=== PATIENT | male | born 1945 | race Caucasian/White ===

== ENCOUNTER 2016-07-19 02:00 | Emergency (ER) | payer MEDICARE, OTHER ==
[2016-07-19] MEDS ORDERED: Sodium Chloride 0.9% 10 ML Syringe FLUSH PRN (02:23)
[2016-07-19] MEDS ORDERED: Ondansetron 4 MG/2 ML SDV IVPUSH ONE (02:23)
[2016-07-19] MEDS ORDERED: HYDROmorphone 1 MG/ML Syringe IVPUSH ONE (02:24)
--- NOTE | 2016-07-19 02:28 | EDM.PDOC ---
ED HPI GENERAL MEDICAL PROBLEM - General Chief Complaint: Abdominal Pain Stated Complaint: RIGHT SIDE PAIN Time Seen by Provider: 07/19/16 02:20 Source of Information: Reports: Patient History Limitations: Reports: No Limitations - History of Present Illness INITIAL COMMENTS - FREE TEXT/NARRATIVE: The patient presents with RLQ abdominal pain. This started early this morning at 0030. He has nausea and vomiting. He has no diarrhea or dysuria. He has no fever or chills. He has no chest pain or shortness of breath. He still has his appendix and gallbladder. Onset: Today Duration: Hour(s): (2) Location: Reports: Abdomen Quality: Reports: Sharp Severity: Moderate Improves with: Reports: None Worsens with: Reports: None Associated Symptoms: Reports: Nausea/Vomiting. Denies: Chest Pain, Fever/Chills , Shortness of Breath Right Lower Abdomen Pain Score (Numeric/FACES): 4 - Related Data Allergies Allergy/AdvReac Type Severity Reaction Status Date / Time metformin Allergy Diarrhea Verified 07/19/16 02:13 Home Meds: Home Meds Aspirin [Ecotrin] 1 tab PO DAILY 07/19/16 [History] Ciprofloxacin HCl [Cipro] 500 mg PO BID #14 tablet 07/19/16 [Rx] Clopidogrel [Plavix] 75 mg PO DAILY 07/19/16 [History] Dutasteride/Tamsulosin HCl [Dutasteride-Tamsulosin 0.5-0.4] 1 cap PO DAILY 07/19 [History] Hydrochlorothiazide 25 mg PO DAILY 07/19/16 [History] Isosorbide Mononitrate [Imdur] 60 mg PO DAILY 07/19/16 [History] Levofloxacin [Levaquin] 500 mg PO DAILY #10 tablet 07/19/16 [Rx] Lisinopril 20 mg PO DAILY 07/19/16 [History] Metoprolol Succinate [Toprol XL] 25 mg PO DAILY 07/19/16 [History] Nitroglycerin [Nitrostat] 0.4 mg SL ASDIRECTED PRN 07/19/16 [History] Pantoprazole Sodium [Protonix] 40 mg PO DAILY 07/19/16 [History] Rosuvastatin [Crestor] 20 mg PO BEDTIME 07/19/16 [History] SitaGLIPtin [Januvia] 1 tab PO DAILY 07/19/16 [History] glipiZIDE [Glucotrol XL] 2.5 mg PO DAILY 07/19/16 [History] Past Medical History Cardiovascular History: Reports: Angina, High Cholesterol, Hypertension, Stents Gastrointestinal History: Reports: Gastritis, GERD Genitourinary History: Reports: BPH, Other (See Below) Other Genitourinary History: enlarged testicles Endocrine/Metabolic History: Reports: Diabetes, Type II - Past Surgical History HEENT Surgical History: Reports: Laser Surgery GI Surgical History: Reports: Colonoscopy Musculoskeletal Surgical History: Reports: Other (See Below) Other Musculoskeletal Surgeries/Procedures:: toe surgery Social & Family History - Tobacco Use Smoking Status *Q: Current Every Day Smoker Years of Tobacco use: 50 Packs/Tins Daily: 1 Used Tobacco, but Quit: No - Caffeine Use Caffeine Use: Reports: Coffee - Recreational Drug Use Recreational Drug Use: No ED ROS GENERAL - Review of Systems Review Of Systems: See Below Constitutional: Reports: No Symptoms HEENT: Reports: No Symptoms Respiratory: Reports: No Symptoms Cardiovascular: Reports: No Symptoms Endocrine: Reports: No Symptoms GI/Abdominal: Reports: Abdominal Pain, Nausea, Vomiting. Denies: Diarrhea : Reports: No Symptoms Musculoskeletal: Reports: No Symptoms Skin: Reports: No Symptoms Neurological: Reports: No Symptoms ED EXAM, GI/ABD - Physical Exam Exam: See Below Exam Limited By: No Limitations General Appearance: Alert, No Apparent Distress Ears: Normal External Exam Nose: Normal Inspection Throat/Mouth: Normal Inspection Head: Atraumatic, Normocephalic Neck: Normal Inspection Respiratory/Chest: No Respiratory Distress, Lungs Clear, Normal Breath Sounds Cardiovascular: Regular Rate, Rhythm, No Edema, No Murmur GI/Abdominal: Soft, No Organomegaly, No Mass, Tenderness (Moderate to the RLQ) Back Exam: Normal Inspection Extremities: Normal Inspection Course - Vital Signs Last Recorded V/S: Last Vital Signs Temp 97.3 F 07/19/16 02:07 Pulse 58 L 07/19/16 02:07 Resp 20 07/19/16 02:07 BP 153/77 H 07/19/16 02:07 Pulse Ox 98 07/19/16 02:07 - Orders/Labs/Meds Orders: Active Orders 24 hr Category Date Time Status Oxygen Therapy [RC] PRN Care 07/19/16 02:24 Active Peripheral IV Care [RC] . DIRECTED Care 07/19/16 02:24 Active Abdomen Pelvis w Cont [CT] Stat Exams 07/19/16 02:23 Taken Sodium Chloride 0.9% [Normal Saline] 1,000 ml Med 07/19/16 02:30 Active IV ASDIRECTED Sodium Chloride 0.9% [Saline Flush] Med 07/19/16 02:23 Active 10 ml FLUSH ASDIRECTED PRN ED Antiemetic Medication Reflex [OM.PC] Stat Oth 07/19/16 02:23 Ordered Peripheral IV Insertion Adult [OM.PC] Stat Oth 07/19/16 02:23 Ordered Medication Orders Sodium Chloride (Normal Saline) 1,000 mls @ 125 mls/hr IV ASDIRECTED ASHLEY Last Admin: 07/19/16 02:30 Dose: 125 mls/hr Sodium Chloride (Saline Flush) 10 ml FLUSH ASDIRECTED PRN PRN Reason: Keep Vein Open Last Admin: 07/19/16 04:20 Dose: 10 ml Labs: Laboratory Tests 07/19/16 07/19/16 07/19/16 Range/Units 02:13 02:13 04:19 WBC 13.44 H (4.23-9.07) K/mm3 RBC 4.96 (4.63-6.08) M/mm3 Hgb 15.1 (13.7-17.5) gm/L Hct 45.2 (40.1-51.0) % MCV 91.1 (79.0-92.2) fl MCH 30.4 (25.7-32.2) pg MCHC 33.4 (32.2-35.5) g/dl RDW Std Deviation 48.8 H (35.1-43.9) fL Plt Count 196 (163-337) K/mm3 MPV 10.4 (9.4-12.3) fl Neut % (Auto) 81.1 H (34.0-67.9) % Lymph % (Auto) 11.6 L (21.8-53.1) % [place] % (Auto) 6.5 (5.3-12.2) % Eos % (Auto) 0.4 L (0.8-7.0) Baso % (Auto) 0.1 (0.1-1.2) % Neut # (Auto) 10.90 H (1.78-5.38) K/mm3 Lymph # (Auto) 1.56 (1.32-3.57) K/mm3 [place] # (Auto) 0.87 H (0.30-0.82) K/mm3 Eos # (Auto) 0.05 (0.04-0.54) K/mm3 Baso # (Auto) 0.02 (0.01-0.08) K/mm3 Sodium 141 (136-145) mEq/L Potassium 4.0 (3.5-5.1) mEq/L Chloride 104 (98-107) mEq/L Carbon Dioxide 28 (21-32) mEq/L Anion Gap 13.0 (5-15) BUN 17 (7-18) mg/dL Creatinine 1.1 (0.7-1.3) mg/dL Est Cr Clr Drug Dosing 57.59 mL/min Estimated GFR (MDRD) > 60 (>60) mL/min BUN/Creatinine Ratio 15.5 (14-18) Glucose 172 H (83-115) mg/dL Calcium 9.4 (8.5-10.1) mg/dL Total Bilirubin 0.5 (0.2-1.0) mg/dL AST 18 (15-37) U/L ALT 25 (16-63) U/L Alkaline Phosphatase 113 (46-116) U/L Total Protein 7.8 (6.4-8.2) g/dl Albumin 3.9 (3.4-5.0) g/dl Globulin 3.9 gm/dL Albumin/Globulin Ratio 1.0 (1-2) Lipase 163 (73-393) U/L Urine Color Yellow (Yellow) Urine Appearance Slt cloudy H (Clear) Urine pH 6.5 (5.0-8.0) Ur Specific [place] 1.015 (1.005-1.030) Urine Protein Negative (Negative) Urine Glucose (UA) Negative (Negative) Urine Ketones Negative (Negative) Urine Occult Blood 1+ H (Negative) Urine Nitrite Positive H (Negative) Urine Bilirubin Negative (Negative) Urine Urobilinogen 0.2 (0.2-1.0) Ur Leukocyte Esterase 3+ H (Negative) Urine RBC 10-20 H (0-5) /hpf Urine WBC 20-30 H (0-5) /hpf Ur Epithelial Cells Not Reportable Ur Squamous Epith Cells 0-5 (0-5) /hpf Urine Bacteria Moderate H (FEW) /hpf Urine Mucus Few (FEW) /hpf Meds: Medications Generic Name Dose Route Start Last Admin Trade Name Freq PRN Reason Stop Dose Admin Sodium Chloride 1,000 mls @ 125 mls/hr 07/19/16 02:30 07/19/16 02:30 Normal Saline IV 125 mls/hr ASDIRECTED ASHLEY Administration Sodium Chloride 10 ml 07/19/16 02:23 07/19/16 04:20 Saline Flush FLUSH 10 ml ASDIRECTED PRN Administration Keep Vein Open Discontinued Medications Generic Name Dose Route Start Last Admin Trade Name Freq PRN Reason Stop Dose Admin Diatrizoate Meglum/Diatrizoate Sod 90 ml 07/19/16 03:42 07/19/16 04:19 Gastrografin 37% PO 07/19/16 03:43 90 ml ONETIME ONE Administration Hydromorphone HCl 1 mg 07/19/16 02:24 07/19/16 02:34 Dilaudid IVPUSH 07/19/16 02:25 1 mg ONETIME ONE Administration Levofloxacin/Dextrose 500 mg/ 100 mls @ 100 mls/hr 07/19/16 05:35 07/19/16 05 :56 Premix IV 07/19/16 06:34 100 mls/hr ONETIME ONE Administration Iopamidol 150 ml 07/19/16 03:42 07/19/16 04:20 Isovue-300 (61%) IVPUSH 07/19/16 03:43 150 ml ONETIME ONE Administration Ondansetron HCl 4 mg 07/19/16 02:23 07/19/16 02:32 Zofran IVPUSH 07/19/16 02:24 4 mg ONETIME ONE Administration - Re-Assessments/Exams Free Text/Narrative Re-Assessment/Exam: 07/19/16 02:27 I ordered an IV NS at 125mL/hr, zofran 4mg IV, dilaudid 1mg IV, labs, UA and a CT of his abdomen and pelvis. 07/19/16 05:48 His WBC was elevated at 13.44. His CMP was negative. His UA shows a UTI. The CT of his abdomen and pelvis shows a large adrenal lesion measuring 4.9 X 3.5 X 3.7 cm. Thickened bladder wall. Small right bladder diverticulum measuring 14 x 11mm. Heterogeneous enlarged prostate with multiple calcifications measuring 5 X 5.1cm causing indentation on bladder base with bladder wall thickening likely secondary to chronic outlet obstruction versus cystitis. Extensive atherosclerosis and mural thrombus of abdominal aorta. Abdominal aorta is measuring about 24 x 24mm. There is dilatation of left common iliac artery with extensive thrombosis in atherosclerosis measuring approximately 23 X 36mm. Extensive atherosclerosis of bilateral common, external and internal carotid arteries. I feel his pain is from the bladder infection. I have ordered levaquin 500mg IV. The other findings he will need to follow up with his doctor. 07/19/16 06:17 The patient says his right testicle is hurting now. He has some edema and pain upon palpation. I have ordered an US of his scrotum. 07/19/16 08:04 The US shows left testicle is slightly hypoechoic as compared to the right testicle. Findings may represent mild diffuse edema. Mild orchitis is possible both venous and arterial blood flow seen within both testicles. Scrotal wall thickening which is nonspecific, and small bilateral hydroceles. I will put him on levaquin 500mg daily for 10 days. Departure - Departure Time of Disposition: 08:30 Disposition: Home, Self-Care 01 Condition: good Clinical Impression: Left adrenal mass, Bladder diverticulum, Enlarged prostate, Aneurysm of left iliac artery, Aortic atherosclerosis, Aortic mural thrombus, Orchitis UTI (urinary tract infection) Qualifiers: Urinary tract infection type: acute cystitis Hematuria presence: without hematuria Qualified Code(s): N30.00 - Acute cystitis without hematuria Hydrocele Qualifiers: Hydrocele type: other Qualified Code(s): N43.2 - Other hydrocele - Discharge Information Prescriptions: Ciprofloxacin HCl [Cipro] 500 mg PO BID #14 tablet Levofloxacin [Levaquin] 500 mg PO DAILY #10 tablet Instructions: Urinary Tract Infection, Adult, [id number] Referrals: Felicitas Johnson MD [Primary Care Provider] - Forms: ED Department Discharge Additional Instructions: Take the levaquin daily for 10 days. Continue with your other medications. Follow up with Dr Johnson within the week. Take a hydrocodone 1 to 2 pills every 6 hours as needed for pain. - My Orders Last 24 Hours: My Active Orders 07/19/16 02:23 Abdomen Pelvis w Cont [CT] Stat Sodium Chloride 0.9% [Saline Flush] 10 ml FLUSH ASDIRECTED PRN ED Antiemetic Medication Reflex [OM.PC] Stat Peripheral IV Insertion Adult [OM.PC] Stat 07/19/16 02:24 Oxygen Therapy [RC] PRN Peripheral IV Care [RC] . DIRECTED 07/19/16 02:30 Sodium Chloride 0.9% [Normal Saline] 1,000 ml IV ASDIRECTED - Assessment/Plan Last 24 Hours: My Active Orders 07/19/16 02:23 Abdomen Pelvis w Cont [CT] Stat Sodium Chloride 0.9% [Saline Flush] 10 ml FLUSH ASDIRECTED PRN ED Antiemetic Medication Reflex [OM.PC] Stat Peripheral IV Insertion Adult [OM.PC] Stat 07/19/16 02:24 Oxygen Therapy [RC] PRN Peripheral IV Care [RC] . DIRECTED 07/19/16 02:30 Sodium Chloride 0.9% [Normal Saline] 1,000 ml IV ASDIRECTED
[2016-07-19] MEDS ORDERED: Sodium Chloride 0.9% 1,000 ML IV SCH (02:30)
[2016-07-19] MEDS ORDERED: Diatrizoate Meglumine/Diatrizoate Sodium 37% 120 ML Bottle PO ONE (03:42)
[2016-07-19] MEDS ORDERED: Iopamidol 612 MG/ML 150 ML Bottle IVPUSH ONE (03:42)
[2016-07-19] MEDS ORDERED: Levofloxacin/Dextrose 5%-Water 500 MG in Premix Bag 1 BAG IV ONE (05:35)
--- NOTE | 2016-07-19 07:59 | US ---
Testicular ultrasound: Multiple real-time images of the testicles were obtained. Left testicle is slightly hypoechoic as compared to the right testicle. No focal abnormality is seen within the testicles. Both venous and arterial blood flow seen within the testicles. Scrotal wall thickening appears to be present. Small bilateral hydroceles are seen. Impression: 1. Left testicle is slightly hypoechoic as compared to the right testicle. Findings may represent mild diffuse edema. Mild orchitis is possible. 2. Both venous and arterial blood flow seen within both testicles. 3. Scrotal wall thickening which is nonspecific. 4. Small bilateral hydroceles. Diagnostic code #3
--- NOTE | 2016-07-19 11:28 | CT ---
CT abdomen and pelvis Technique: Multiple axial sections were obtained from above the dome of the diaphragm inferiorly through the pubic symphysis. Delayed images were also obtained through the abdomen and pelvis. Comparison: No previous abdominal imaging. Findings: Small portion of the visualized lung bases show nothing acute. Liver shows no focal parenchymal abnormality. Spleen appears within normal limits. Left adrenal mass is seen. Mass measures approximately 4.9 cm in greatest dimension. Right adrenal gland is unremarkable. Small cysts are seen within the right kidney with largest measuring around 1.5 cm. Pancreas is within normal limits. Aorta shows diffuse atherosclerotic change. Aneurysm noted within the left common iliac artery measuring 3.1 cm. Small retroperitoneal lymph nodes are seen which are normal. No mesenteric abnormalities are seen. Small bladder diverticulum seen off the posterior right side measuring 1.8 cm. Prostate gland is enlarged and shows calcifications. Bladder wall is slightly prominent likely representing muscular hypertrophy from element of bladder outlet obstruction. Small fat-containing left inguinal hernia is noted. Appendix not seen with certainty. Minimal colonic diverticuli are seen. Impression: 1. Left common iliac artery aneurysm measuring 3.1 cm. 2. Other incidental findings as noted above. No acute abnormality is appreciated on CT study of the abdomen and pelvis. Diagnostic code #3 I agree with preliminary report issued by [facility] ([facility] preliminary report dictated on 07/19/16, 6:03 AM Central Time)
[2016-07-19 11:48] VITALS: BP 139/70
== END 2016-07-19 08:33 | disposition home or self-care (01) ==
LOC: JD.ED 02:00
DX: R10.31 Right lower quadrant pain (principal); E11.9 Type 2 diabetes mellitus without complications; I10 Essential (primary) hypertension; F17.210 Nicotine dependence, cigarettes, uncomplicated; N30.00 Acute cystitis without hematuria; E27.8 Other specified disorders of adrenal gland; N32.3 Diverticulum of bladder; N40.0 Benign prostatic hyperplasia without lower urinary tract symptoms; I72.3 Aneurysm of iliac artery; I70.0 Atherosclerosis of aorta; N45.2 Orchitis; Z98.890 Other specified postprocedural states; Z79.02 Long term (current) use of antithrombotics/antiplatelets; N43.3 Hydrocele, unspecified; Q61.01 Congenital single renal cyst; K40.30 Unilateral inguinal hernia, with obstruction, without gangrene, not specified as recurrent
CPT/HCPCS: 36415; 74177; 76870; 80053; 81001; 83690; 85025; 87086; 87088; 87186; 93975; 96361; 96365; 96375; 99284; J1170; J1956; J2405; J7040; J7050; Q9963; Q9967

== ENCOUNTER 2018-04-11 07:06 | Day surgery (SDC) | payer OTHER ==
[~2018-04-11 07:06] MED LIST: Lactated Ringers 1,000 ML IV SCH; Lidocaine 1%/Sod Bicarbonate in NS 8.4% 1 ML Syringe IDERM PRN; Sodium Chloride 0.9% 10 ML Syringe FLUSH PRN
[2018-04-11] MEDS ORDERED: fentaNYL 100 MCG/2 ML SDV ONE (07:10)
[2018-04-11] MEDS ORDERED: Propofol 200 MG/20 ML SDV ONE (07:10)
[2018-04-11] MEDS ORDERED: Lidocaine 1% 4 ML ONE (07:11)
--- NOTE | 2018-04-11 07:53 | PCM.PREANE ---
Preanesthetic Assessment - Anesthesia/Transfusion/Family Hx Anesthesia History: Prior Anesthesia Without Reaction Family History of Anesthesia Reaction: No - Review of Systems General: No Symptoms Pulmonary: Shortness of Breath (Chronic for years, with activity. Smoker 1ppd. Recent Chest CT was "good". ), Cough, Other (ProAir this am at 0600 per his usual routine. 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 Heart cath 3 years ago wtih stenting, pain has remained the same since that time. Last appointment was in November with no changes to current management. ) Gastrointestinal: No Symptoms Neurological: No Symptoms Other: Reports: Easy Bleeding, Easy Bruising (On plavix. Last dose was 04/04/2018 stopped for procedure. ), Diabetes (Blood glucose 171 mg/dl. ) - Physical Assessment NPO Status Date: 04/10/18 NPO Status Time: 20:00 Pulse: 59 O2 Sat by Pulse Oximetry: 100 Respiratory Rate: 20 Blood Pressure: 158/100 Temperature: 36.8 C Weight: 70 kg ASA Class: 3 Mental Status: Alert & Oriented x3 Airway Class: Mallampati = 2 Dentition: Reports: Dentures Thyro-Mental Finger Breadths: 3 Mouth Opening Finger Breadths: 3 ROM/Head Extension: Full Lungs: Clear to Auscultation, Normal Respiratory Effort, Decreased Breath Sounds Cardiovascular: Regular Rate, Regular Rhythm - Lab Values: Laboratory Last Values POC Glucose 171 mg/dL (83-110) H 04/11/18 07:36 - Allergies Allergies/Adverse Reactions: Allergies Allergy/AdvReac Type Severity Reaction Status Date / Time metformin Allergy Diarrhea Verified 04/10/18 15:12 - Acknowledgements Anesthesia Type Planned: MAC Pt an Appropriate Candidate for the Planned Anesthesia: Yes Alternatives and Risks of Anesthesia Discussed w Pt/Guardian: Yes Pt/Guardian Understands and Agrees with Anesthesia Plan: Yes PreAnesthesia Questionnaire HEENT History: Reports: Cataract, Glaucoma, Hard of Hearing, Other (See Below) Other HEENT History: has glasses, hearing aids, dentures Cardiovascular History: Reports: Angina, CAD, High Cholesterol, Hypertension, [place] , Stents, Other (See Below) Other Cardiovascular History: sick sinus syndrome Respiratory History: Reports: SOB Gastrointestinal History: Reports: Gastritis, GERD Genitourinary History: Reports: BPH, Other (See Below) Other Genitourinary History: enlarged testicles [employer]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: 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 Musculoskeletal History: Reports: Other (See Below) Other Musculoskeletal History: right wrist tendonitis, cmc arthritis, toe arthroplasty, right rotator cuff repair, right foot/ankle surgery Neurological History: Reports: None Psychiatric History: Reports: None Endocrine/Metabolic History: Reports: Diabetes, Type II, Other (See Below) Other Endocrine/Metabolic History: left adrenal glad adenoma Hematologic History: Reports: None Immunologic History: Reports: None Oncologic (Cancer) History: Reports: Basal Cell Carcinoma Dermatologic History: Reports: Other (See Below) Other Dermatologic History: BCC - Past Surgical History Head Surgeries/Procedures: Reports: None HEENT Surgical History: Reports: Cataract Surgery, Laser Surgery Cardiovascular Surgical History: Reports: AAA Repair Respiratory Surgical History: Reports: None GI Surgical History: Reports: Colonoscopy Endocrine Surgical History: Neurological Surgical History: Reports: None Musculoskeletal Surgical History: Reports: Other (See Below) Other Musculoskeletal Surgeries/Procedures:: toe surgery Oncologic Surgical History: Reports: None Dermatological Surgical History: Reports: Other (See Below) - SUBSTANCE USE Smoking Status *Q: Current Every Day Smoker Recreational Drug Use History: No - HOME MEDS Home Medications: Home Meds Aspirin [Ecotrin] 81 mg PO DAILY 07/19/16 [History] Clopidogrel [Plavix] 75 mg PO DAILY 07/19/16 [History] Dutasteride/Tamsulosin HCl [Dutasteride-Tamsulosin 0.5-0.4] 1 cap PO DAILY 07/19 [History] Isosorbide Mononitrate [Imdur] 60 mg PO BID 07/19/16 [History] Nitroglycerin [Nitrostat] 0.4 mg SL ASDIRECTED PRN 07/19/16 [History] Pantoprazole Sodium [Protonix] 40 mg PO DAILY 07/19/16 [History] Rosuvastatin [Crestor] 20 mg PO BEDTIME 07/19/16 [History] SitaGLIPtin [Januvia] 50 mg PO DAILY 07/19/16 [History] glipiZIDE [Glucotrol XL] 2.5 mg PO DAILY 07/19/16 [History] Albuterol Sulfate [Proair Hfa] 2 puff INH TID 04/10/18 [History] Fluticasone Propionate [Flonase] 1 dose NASBOTH DAILY 04/10/18 [History] Fluticasone/Vilanterol [Breo Ellipta 100-25 MCG Inhalation Kit] 1 puff INH DAILY 04/10/18 [History] Gabapentin [Neurontin] 100 mg PO BID PRN 04/10/18 [History] Lisinopril 10 mg PO DAILY 04/10/18 [History] Multivitamin [Poly-Vitamin] 1 tab PO DAILY 04/10/18 [History] - CURRENT (IN HOUSE) MEDS Current Meds: Current Medications Lactated Ringer's (Ringers, Lactated) 1,000 mls @ 125 mls/hr IV ASDIRECTED ASHLEY Stop: 04/11/18 23:00 Lidocaine/Sodium Bicarbonate (Buffered Lidocaine 1% In Ns 8.4%) 0.25 ml IDERM ONETIME PRN PRN Reason: Prior to IV Start Stop: 04/11/18 18:00 Sodium Chloride (Saline Flush) 10 ml FLUSH ASDIRECTED PRN PRN Reason: Keep Vein Open Stop: 04/11/18 18:00 Discontinued Medications Fentanyl (Sublimaze) Confirm Administered Dose 100 mcg .ROUTE .STK-MED ONE Stop: 04/11/18 07:11 Lidocaine HCl (Xylocaine-Mpf 1%) Confirm Administered Dose 4 mls @ as directed .ROUTE .STK-MED ONE Stop: 04/11/18 07:12 Propofol (Diprivan 20 Ml) Confirm Administered Dose 400 mg .ROUTE .STK-MED ONE Stop: 04/11/18 07:11
--- NOTE | 2018-04-11 08:47 | PCM48HPAN ---
Post Anesthesia Note - EVALUATION WITHIN 48HRS OF ANESTHETIC Vital Signs in Normal Range: Yes Patient Participated in Evaluation: Yes Respiratory Function Stable: Yes Airway Patent: Yes Cardiovascular Function Stable: Yes Hydration Status Stable: Yes Pain Control Satisfactory: Yes Nausea and Vomiting Control Satisfactory: Yes Mental Status Recovered: Yes
--- NOTE | 2018-04-11 08:49 | PCM.OPNOTE ---
- General Post-Op/Procedure Note Date of Surgery/Procedure: 04/11/18 Operative Procedure(s): colonoscopy to cecum Pre Op Diagnosis: surveillance colonoscopy for polyps Post-Op Diagnosis: Same Anesthesia Technique: MAC Primary Surgeon: Zander Lorenzana EBL in mLs: 0 Complications: None Condition: Good
[2018-04-11 09:22] VITALS: BP 144/80
--- NOTE | 2018-04-12 07:03 | OR ---
DATE OF OPERATION: 04/11/2018 SURGEON: Zander Lorenzana MD PREOPERATIVE DIAGNOSIS: History of colonic polyps. POSTOPERATIVE DIAGNOSIS: History of colonic polyps. INDICATION: Surveillance colonoscopy for personal history of polyps. OPERATION PERFORMED: Colonoscopy to cecum. FINDINGS: Mild sigmoid diverticulosis. No angiodysplasia, neoplasia, large tumor masses, ulcerations, or hemorrhoids. ANESTHESIA: Procedure done under IV sedation. DESCRIPTION OF PROCEDURE: The patient was taken to the endoscopy room, placed in a supine position, connected to monitoring equipment, and given IV sedation. The patient was placed in the left lateral position. Perianal areas were inspected and showed some hemorrhoidal tags. Rectal exam showed good sphincter tone. A video Olympus colonoscope was then introduced into the rectum and threaded up without problem to the cecum, where the appendicular orifice was noted. Prep was excellent. [place] Cleansing Score grade. The scope was slowly withdrawn showing the cecum, ascending colon, transverse colon, descending colon, sigmoid colon, and rectum. Findings were that of sigmoid diverticulosis. The patient tolerated the procedure and sent to recovery room in a stable condition. Recommendation is against another colonoscopy. ESTIMATED BLOOD LOSS: MMODAL /[id number]
== END 2018-04-11 09:20 | disposition home or self-care (01) ==
LOC: JD.SDS 07:06
PROVIDERS: ATTEND Surgery
DX: Z12.11 Encounter for screening for malignant neoplasm of colon (principal); K57.30 Diverticulosis of large intestine without perforation or abscess without bleeding; K64.4 Residual hemorrhoidal skin tags; K21.9 Gastro-esophageal reflux disease without esophagitis; I49.5 Sick sinus syndrome; I25.10 Atherosclerotic heart disease of native coronary artery without angina pectoris; I10 Essential (primary) hypertension; I25.2 Old myocardial infarction; E11.9 Type 2 diabetes mellitus without complications; E78.00 Pure hypercholesterolemia, unspecified; E27.8 Other specified disorders of adrenal gland; F17.210 Nicotine dependence, cigarettes, uncomplicated; N40.0 Benign prostatic hyperplasia without lower urinary tract symptoms; Z88.8 Allergy status to other drugs, medicaments and biological substances; Z95.5 Presence of coronary angioplasty implant and graft; Z86.010 Personal history of colon polyps; Z79.51 Long term (current) use of inhaled steroids; Z79.02 Long term (current) use of antithrombotics/antiplatelets; Z79.82 Long term (current) use of aspirin; Z79.84 Long term (current) use of oral hypoglycemic drugs; Z79.899 Other long term (current) drug therapy
CPT/HCPCS: 45378; 82962; J2001; J2704; J3010; J7120; 00811